=== PATIENT | female | born 1985 | race Hispanic/Latino ===

== ENCOUNTER 2018-04-26 22:20 | Emergency (ER) | payer OTHER ==
[2018-04-26 22:26] VITALS: BP 113/72; PULSE 63; RESP 16; TEMP 97.8; O2SAT 99
[2018-04-26 22:27] VITALS: BMI 24.0
--- NOTE | 2018-04-26 22:32 | ED PDOC ---
HPI: General Adult Time Seen by Provider: 04/26/18 22:31 Chief Complaint (Nursing): Headache Chief Complaint (Provider): head injury History Per: Patient Additional Complaint(s): 32-year-old female presents with left-sided headache status post head injury. Patient states that a large shelf fell on top of her head around 4:30 PM. Patient continued to work and took Advil which did help the pain. She presents to ED for further evaluation this evening. She rates headache as a 6 out of 10. Patient denies any dizziness, vision changes, nausea or vomiting. She does describe the pain as throbbing. PMD: Dr. Bear in [place] Past Medical History Reviewed: Historical Data, Nursing Documentation, Vital Signs Vital Signs: Last Vital Signs Temp 97.8 F 04/26/18 22:26 Pulse 63 04/26/18 22:26 Resp 16 04/26/18 22:26 BP 113/72 04/26/18 22:26 Pulse Ox 99 04/26/18 22:31 - Medical History PMH: No Chronic Diseases - Surgical History Other surgeries: cosmetic surgery - Family History Family History: States: No Known Family Hx - Living Arrangements Living Arrangements: With Family - Social History Current smoker - smoking cessation education provided: No Alcohol: None Drugs: Denies - Allergies Allergies/Adverse Reactions: Allergies Allergy/AdvReac Type Severity Reaction Status Date / Time No Known Allergies Allergy Verified 04/26/18 22:24 Review of Systems ROS Statement: Except As Marked, All Systems Reviewed And Found Negative Neurological: Positive for: Other (head injury with no LOC) Physical Exam - Reviewed Nursing Documentation Reviewed: Yes Vital Signs Reviewed: Yes - Physical Exam Appears: Positive for: Well, Non-toxic, No Acute Distress Head Exam: Negative for: ATRAUMATIC (small contusion noted to left parietal scalp, head is otherwise atraumatic) Skin: Positive for: Normal Color. Negative for: Rash Eye Exam: Positive for: Normal appearance, EOMI, PERRL ENT: Positive for: Normal ENT Inspection Neck: Positive for: Normal Cardiovascular/Chest: Positive for: Regular Rate, Rhythm Respiratory: Positive for: Normal Breath Sounds. Negative for: Wheezing, Respiratory Distress Neurologic/Psych: Positive for: Alert, production pattern maker II-XII (grossly intact), Oriented, Gait (steady). Negative for: Motor/Sensory Deficits, Aphasia, Facial Droop - ECG O2 Sat by Pulse Oximetry: 99 Pulse Ox Interpretation: Normal Medical Decision Making Medical Decision Makin32 year old with head injury Patient with minor head injury sustained at 4:30 PM. No acute neuro deficits noted on exam. Patient is awake and alert 3. There is no absolute indication for CT head at this time. Patient is comfortable with conservative treatment via observation. Patient's mother is with her this evening and will be staying in her home to observe her. Advised Tylenol only for pain and ice to affected area. Patient advised to return any time for any concerns or worsening symptoms , otherwise to follow-up with primary doctor in 2-3 days. Disposition - Clinical Impression Clinical Impression: Head injury - Patient ED Disposition Is Patient to be Admitted: No Counseled Patient/Family Regarding: Diagnosis, Need For Followup - Disposition Referrals: [facility] [Outside] Disposition: Routine/Home Disposition Time: 22:50 Condition: STABLE Additional Instructions: Tylenol for pain as needed. Monitor symptoms closely and return to emergency room any time if acutely worse, otherwise follow-up with primary doctor in 2-3 days. Instructions: Head Injury Observation (DC), Closed Head Injury (DC) Forms: [employer] (Polish)
== END 2018-04-26 23:10 | disposition home or self-care (01) ==
LOC: H.ER 22:20
DX: S09.90XA Unspecified injury of head, initial encounter (principal); W20.8XXA Other cause of strike by thrown, projected or falling object, initial encounter